=== PATIENT | female | born 1995 | race Caucasian/White ===

== ENCOUNTER → 2024-09-21 07:45 | Outpatient (REF) | payer OTHER, SELFPAY | LOC: PNTC 07:45 | PROVIDERS: ATTENDING PHYSICIAN Obstetrics & Gynecology | DX: O36.80X0 Pregnancy with inconclusive fetal viability, not applicable or unspecified (principal) | CPT/HCPCS: 76801 ==

== ENCOUNTER → 2024-10-19 07:16 | Outpatient (REF) | payer OTHER, SELFPAY | LOC: PNTC 07:16 | PROVIDERS: ATTENDING PHYSICIAN Obstetrics & Gynecology | DX: Z36.82 Encounter for antenatal screening for nuchal translucency (principal); Z36.0 Encounter for antenatal screening for chromosomal anomalies | CPT/HCPCS: 76801; 76813 ==

== ENCOUNTER → 2024-12-13 15:41 | Outpatient (REF) | payer OTHER, SELFPAY | LOC: PNTC 15:41 | PROVIDERS: ATTENDING PHYSICIAN Obstetrics & Gynecology | DX: Z34.90 Encounter for supervision of normal pregnancy, unspecified, unspecified trimester (principal) | CPT/HCPCS: 76805; 76817 ==

== ENCOUNTER → 2025-01-31 17:05 | Outpatient (REF) | payer OTHER, SELFPAY | LOC: PNTC 17:05 | PROVIDERS: ATTENDING PHYSICIAN Student in an Organized Health Care Education/Training Program | DX: Z34.83 Encounter for supervision of other normal pregnancy, third trimester (principal) | CPT/HCPCS: 36415; 86850; 86900; 86901; 96372; J2790 ==